=== PATIENT | female | born 1935 | race Caucasian/White ===

== ENCOUNTER 2018-02-17 11:10 | Inpatient (IN) | payer OTHER ==
[~2018-02-17] VITALS: Ht 154.9 cm; Wt 40.4 kg
[2018-02-17] VITALS (7 sets, daily range): BP systolic 84–106; BP diastolic 54–78
[~2018-02-17 11:10] MED LIST: BACITRACIN 500U30 G1 TOP; COLACE100 MG PO; ELIQUIS2.5 MG PO; FISH OIL 1,001000 M2 PO; FOLIC ACID1 MG PO; HYDROCHLOROTH12.5 M1 PO; HYDROCODON-ACE1 EAC7 PO; KEFLEX500 MG PO; LISINOPRIL2.5 MG PO; OMEGA-31000 M1 PO; PRAVACHOL20 MG PO; SORINE 80 MG TA80 M1 PO; TOPROL XL25 MG PO; VITAMIN B-1100 M1 PO; VITAMIN B-12500 MCG PO; VITAMIN D32000 UNI1 PO
--- NOTE | 2018-02-17 12:18 | NUR ---
CARDIZEM BOLUS NOT YET GIVEN UNTIL DOSE CAN BE VERIFIED WITH DR. SPIVEY D/T SBP IN THE 90S.
[2018-02-17 12:20] LABS: ABSOLUTE BASOPHILS 0.1 thou/uL (0.0-0.2); ABSOLUTE EOSINOPHILS 0.2 thou/uL (0.0-0.7); ABSOLUTE LYMPHOCYTES 0.8 thou/uL (0.8-5.3); ABSOLUTE MONOCYTES 0.9 thou/uL (0.0-1.2); ABSOLUTE NEUTROPHILS 4.6 thou/uL (1.6-8.1); EOSINOPHILS 2.8 %; HEMATOCRIT 39.3 % (37.0-47.0); HEMOGLOBIN 13.1 gm/dL (12.0-15.0); LYMPHOCYTES 12.4 %; MCH 28.7 pg (26.0-34.0); MCHC 33.4 g/dL (28.0-37.0); MCV 85.9 fL (80.0-100.0); MPV 7.6 fl. (7.2-11.1); NUCLEATED RBCS 0 /100WBC; PLATELET COUNT* 250 thou/uL (150-400); POLYS 69.8 %; RBC 4.57 mil/uL (4.20-5.00); RDW-CV 15.9 % (10.5-14.5); WBC 6.6 thou/uL (4.0-11.0)
[2018-02-17 12:24] LABS: ANION GAP 8 mmol/L (7-16); BUN 25 mg/dL (7-18); CALCIUM 9.6 mg/dL (8.5-10.1); CHLORIDE 98 mmol/L (98-107); CO2 28 mmol/L (21-32); CREATININE 0.8 mg/dL (0.6-1.3); GLUCOSE 114 mg/dL (70-99); POTASSIUM 3.7 mmol/L (3.5-5.1); SODIUM 134 mmol/L (136-145)
[2018-02-17 12:31] LABS: ALBUMIN 3.3 g/dL (3.4-5.0); ALKALINE PHOSPHATASE 86 U/L (46-116); SGOT 34 U/L (15-37); SGPT 22 U/L (30-65); TOTAL PROTEIN 7.3 g/dL (6.4-8.2); TROPONIN-I LEVEL <0.06 ng/mL (<0.06)
--- NOTE | 2018-02-17 12:54 | NUR ---
REVIEWED DOCUMENTATION OF NSG STUDENT Esa ARVIZU & TONI W/ SAME.
[2018-02-17 13:02] LABS: BE -1.4 mmol/L (-2 to +3); HCO3 22.8 mmol/L (22.0-26.0); PCO2 36.8 mmHg (35.0-45.0); PO2 79.6 mmHg (75.0-100.0)
--- NOTE | 2018-02-17 13:31 | NUR ---
ASSUMED PT CARE.
--- NOTE | 2018-02-17 16:40 | 2DMMODE ---
[place] [address] 2 D/M-MODE ECHOCARDIOGRAM Name: ARACELI BRAND Room: [address] IN [facility]#: [id number] Admission: 02/17/18 Attend Phys: Ivonne Jackson, Discharge: Date of : 33 Date of Service: 02/17/18 1639 Report #: [id number] THIS REPORT FOR: //name// APPROVED REPORT Study performed: 02/17/2018 16:04:36 EXAM: Comprehensive 2D, Doppler, and color-flow Echocardiogram Patient Location: In-Patient Room #: 201 Status: routine BSA: 1.34 HR: 112 bpm BP: 93/54 mmHg Rhythm: Atrial Fibrillation Other Information Study Quality: Good Indications Atrial Fibrillation Pneumonia 2D Dimensions LVEF(%): 56.79 (>50%) IVSd: 7.72 (7-11mm) LVOT Diam: 17.61 (18-24mm) LVDd: 30.28 mm PWd: 6.68 (7-11mm) Ascending Ao: 26.60 (22-36mm) LVDs: 21.60 (25-40mm) Aortic Root: 29.44 mm Forbes's LVEF: 56.79 % Volumes Left Atrial Volume (Systole) LA ESV Index: 28.50 mL/m2 Aortic Valve AoV Peak Gavin.: 0.78 m/s AO Peak Gr.: 2.45 mmHg LVOT Max P.52 mmHg AO Mean Gr.: 1.44 mmHg LVOT Mean P.79 mmHg LVOT Max V: 0.62 m/s AO V2 VTI: 12.19 cm LVOT Mean V: 0.41 m/s ILA (VTI): 1.90 cm2 LVOT V1 VTI: 9.49 [place] [address] 2 D/M-MODE ECHOCARDIOGRAM Name: ARACELI BRAND Room: [address] IN .R.#: [id number] Admission: 02/17/18 Attend Phys: Ivonne Jackson, Discharge: Date of : 33 Date of Service: 02/17/18 1639 Report #: [id number] MV Decel. Time: 97.85 ms MV PHT: 28.38 ms MVA (PHT): 7.75 cm2 TDI Medial E' Gavin.: 0.10 m/s Lateral E' Gavin.: 0.10 m/s Pulmonary Valve PV Peak Gavin.: 0.62 m/s PV Peak Gr.: 1.55 mmHg Tricuspid Valve RAP Estimate: 10.00 mmHg TR Peak Gr.: 39.67 mmHg RVSP: 49.67 mmHg PA Pressure: 49.67 mmHg Left Ventricle The left ventricle is normal size. There is left ventricular dyssynergy consistent with underlying bundle branch block. There is normal left ventricular wall thickness. Left ventricular systolic function is normal. LVEF is 65-70%. This study is not technically sufficient to allow evaluation of the LV diastolic function due to atrial fibrillation. Right Ventricle Right ventricle is mildly dilated. The right ventricular systolic function is normal. Pacemaker lead is present in the right ventricle. Atria Left atrium is mildly dilated. Right atrium is moderately dilated. Aortic Valve Mild aortic valve sclerosis. No aortic regurgitation is present. There is no aortic valvular stenosis. Mitral Valve The mitral valve is normal in structure. Mild mitral regurgitation. No evidence of mitral valve stenosis. Tricuspid Valve The tricuspid valve is normal in structure. Mild tricuspid regurgitation. The RVSP is 50-55 mmHg. Pulmonic Valve The pulmonary valve is normal in structure[place] [address] 2 D/M-MODE ECHOCARDIOGRAM Name: ARACELI BRAND Room: [address] IN [facility]#: [id number] Admission: 02/17/18 Attend Phys: Ivonne Jackson, Discharge: Date of : 33 Date of Service: 02/17/18 1639 Report #: [id number] regurgitation. Great Vessels The aortic root is normal in size. IVC is dilated. Pericardium There is no pericardial effusion. <Conclusion> The left ventricle is normal size. There is normal left ventricular wall thickness. Left ventricular systolic function is normal. LVEF is 65-70%. There is left ventricular dyssynergy consistent with underlying bundle branch block. Right ventricle is mildly dilated. Left atrium is mildly dilated. Right atrium is moderately dilated. Mild aortic valve sclerosis. Mild mitral regurgitation. Mild tricuspid regurgitation. The RVSP is 50-55 mmHg. Mild pulmonic regurgitation. IVC is dilated. <ELECTRONICALLY SIGNED> By: Brayan Chavarria MD, FACC 02/17/18 1639 [id number] Brayan Chavarria MD, FACC /INF
--- NOTE | 2018-02-17 17:02 | NUR ---
ASSUMED CARE OF PATIENT AT 1406 AFTER TRANSFER TO ROOM 201 FROM EMERGENCY DEPARTMENT. PATIENT AWAKE, ALERT, AND ORIENTED, HARD OF HEARING. ADMISSIONS ASSESSMENT AND DOCUMENTATION COMPLETED AND CHARTED. VITAL SIGNS STABLE. OXYGEN SATURATION WITHIN NORMAL LIMITS ON 4 LPM PER NASAL CANULA. PATIENT TRANSFERS AND AMBULATES WITH ASSISTANCE FROM STAFF. FALL CONTRACT SIGNED. USES CALL LIGHT APPROPRIATELY. DENIES NEEDS AT THIS TIME. CALL LIGHT WITHIN REACH. NURSING WILL CONTINUE TO MONITOR.
--- NOTE | 2018-02-17 17:22 | EKG ---
[place] [address] ELECTROCARDIOGRAM REPORT Name: ARACELI BRAND Room: [address] ADM IN .R.#: [id number] Admission: 02/17/18 Attend Phys: Ivonne Jackson MD Discharge: Date of : 33 Report #: [id number] THIS REPORT FOR: //name// [place] [facility] Test Date: 2018-02-17 Test Time: 11:17:47 Pat Name: ARACELI BRAND Department: Room: [facility] Gender: F Captain Waiter: Karlie CUELLO : 1935 Requested By: Kira Sanabria Order Number: [id number] MD: Brayan Chavarria Measurements Intervals [place] Rate: 126 P: 0 CO: 172 QRS: -82 QRSD: 126 T: 98 QT: 400 QTc: 580 Interpretive Statements Ventricular-paced complexes Consider pacemaker mediated tachycardia No further analysis attempted due to paced rhythm Compared to ECG 02/28/2016 08:08:02 Atrial-paced complex(es) or rhythm no longer present T-wave abnormality no longer present Possible ischemia no longer present Electronically Signed On 02-17-2018 17:22:06 CDT by Brayan Chavarria [email or web address] <ELECTRONICALLY SIGNED> By: Brayan Chavarria MD, FACC 02/17/18 1722 1117 [id number] Brayan Chavarria MD, FACC /EPI
[2018-02-18] VITALS (7 sets, daily range): BP systolic 82–110; BP diastolic 37–53
--- NOTE | 2018-02-18 03:18 | NUR ---
ASSUMED CARE OF PT AT 1900. PT IS ALERT AND ORIENTED. VSS. PERRLA. NO COMPLAINTS OF PAIN. PT WAS IN A FIB ON THE TELEMETRY AT THE BEGINNING OF THE SHIFT. PT IS ON 2.5 MG/HR OF CARDIZEM. AT ABOUT 2240, PT CONVERTED TO SINUS RYTHM. PT IS SLEEPING QUIETLY IN BED. REPIRATIONS ARE EVEN AND NONLABORED. WILL CONTINUE TO MONITOR PT.
[2018-02-18 04:57] LABS: HEMATOCRIT 38.2 % (37.0-47.0); HEMOGLOBIN 12.9 gm/dL (12.0-15.0); MCH 29.2 pg (26.0-34.0); MCHC 33.7 g/dL (28.0-37.0); MCV 86.5 fL (80.0-100.0); MPV 7.5 fl. (7.2-11.1); RBC 4.42 mil/uL (4.20-5.00); RDW-CV 15.7 % (10.5-14.5); WBC 4.5 thou/uL (4.0-11.0)
[2018-02-18 05:15] LABS: MAGNESIUM 1.9 mg/dL (1.8-2.4); POTASSIUM 3.7 mmol/L (3.5-5.1)
--- NOTE | 2018-02-18 11:19 | EKG ---
[place] [address] ELECTROCARDIOGRAM REPORT Name: ARACELI BRAND Room: [address] ADM IN M.R.#: [id number] Admission: 02/17/18 Attend Phys: Ivonne Jackson MD Discharge: Date of : 33 Report #: [id number] THIS REPORT FOR: //name// [facility] Test Date: 2018-02-18 Test Time: 09:34:07 Pat Name: ARACELI BRAND Department: Room: [address] Gender: F Spiral Runner: JANE : 1935 Requested By: Ivonne Jackson Order Number: [id number] Reading MD: Virgilio Sanchez Measurements Intervals [place] Rate: 71 P: [place]: 211 QRS: 63 QRSD: 92 T: 248 QT: 488 QTc: 531 Interpretive Statements Atrial-paced complexes Borderline low voltage, extremity leads Abnormal R-wave progression, early transition Abnormal T, consider ischemia, diffuse leads Prolonged QT interval Baseline wander in lead(s) V6 Compared to ECG 02/17/2018 11:17:47 T-wave abnormality now present Possible ischemia now present Prolonged QT interval now present Ventricular-paced complex(es) not seen Electronically Signed On 02-18-2018 11:19:25 CDT by Virgilio Sanchez [email or web address] <ELECTRONICALLY SIGNED> By: Virgilio Sanchez MD, [facility] 02/18/18 1119 0934 Virgilio Sanchez MD, [facility] /EPI
--- NOTE | 2018-02-18 13:04 | NUR ---
Nutrition: Pt assessed for low BMI. Usual wt: 85-95# x several yrs. Pt usually has a good appetite. No recent wt changes. She refuses oral supplements. H/o DJD, falls, CAD, HI, bonifacio, pacemaker. RX: HCTZ, statin, fish oil, solumedrol, D3, B12, B1, vanc. Admitted with PNA. 2gm Na diet. Underweight R/T body frame AEB pt hx, BMI 17. Mild nutrition risk. Oral supplements available if pt desires.
--- NOTE | 2018-02-18 18:27 | NUR ---
ASSUMED CARE OF PATIENT AFTER REPORT THIS MORNING. PATIENT AWAKE, ALERT, AND ORIENTED APPROPRIATELY. PHYSICAL ASSESSMENT COMPLETED AND CHARTED. NO COMPLAINTS OF PAIN THIS SHIFT. HYPOTENSIVE BLOOD PRESSURE, CARDIZEM DRIP STOPPED AND NS BOLUS GIVEN THIS AFTERNOON. BLOOD PRESSURE RETURNED TO BE WITHIN NORMAL LIMITS. GIVEN SCHEDULED MEDICATIONS, SEE EMAR FOR DOCUMENTATION. OXYGEN SATURATION WITHIN NORMAL LIMITS ON ROOM AIR. PATIENT TRANSFERS AND AMBULATES WITH ASSISTANCE FROM STAFF. USES CALL LIGHT APPROPRIATELY. DENIES NEEDS AT THIS TIME. CALL LIGHT WITHIN REACH. NURSING WILL CONTINUE TO MONITOR.
--- NOTE | 2018-02-18 22:00 | NUR ---
ASSUMED CARE OF PT AT 1900. PT IS ALERT AND ORIENTED. VSS. PERRLA. NO COMPLAINTS OF PAIN. STEADY GAIT. PT IS IN SINUS RYTHM WITH A PROLONGED MT INTERVAL. PT IS SLEEPING QUIETLY IN BED. RESPIRATIONS ARE EVEN AND NONLABORED. WILL CONTINUE TO MONITOR PT.
[2018-02-19] VITALS (7 sets, daily range): BP systolic 102–129; BP diastolic 57–72
[2018-02-19 04:31] LABS: HEMATOCRIT 36.3 % (37.0-47.0); MCH 28.4 pg (26.0-34.0); MCHC 33.1 g/dL (28.0-37.0); MCV 85.8 fL (80.0-100.0); MPV 7.3 fl. (7.2-11.1); NUCLEATED RBCS 0 /100WBC; PLATELET COUNT* 235 thou/uL (150-400); RBC 4.23 mil/uL (4.20-5.00); RDW-CV 15.9 % (10.5-14.5); WBC 8.6 thou/uL (4.0-11.0)
[2018-02-19 06:02] LABS: ABSOLUTE LYMPHOCYTES 0.3 thou/uL (0.8-5.3); ABSOLUTE MONOCYTES 0.3 thou/uL (0.0-1.2); ABSOLUTE NEUTROPHILS 7.9 thou/uL (1.6-8.1); ANISOCYTOSIS 1+; PLATELET ESTIMATE ADEQUATE; POIKILOCYTOSIS 1+
--- NOTE | 2018-02-19 07:25 | NUR ---
CHANGE OF SHIFT, BEDSIDE REPORT GIVEN PATIENT SEEN AT BEDSIDE, IN BED ASLEEP ASSUMED PATIENT CARE
--- NOTE | 2018-02-19 09:30 | NUR ---
ORDER RECEIVED FOR "OT EVALUATION AND TREATMENT". ENTERED PATIENT'S ROOM AND SPOUSE SEATED AT BEDSIDE. OT PROVIDING EDUCATION IN ROLE OF O.T. PATIENT VERY ADAMANT THAT SHE DOES NOT NEED OCCUPATIONAL THERAPY. WILL DEFER TO PHYSICAL THEAPY AT THIS TIME.
--- NOTE | 2018-02-19 09:48 | NUR ---
Pt is A&O. Resides at home with her . Independent with ADLs, continues to cook, clean and drive. Pt uses a walker when out in the community. No home o2. Hx of HH after a skilled stay last year, Pt was skilled at [facility]. Pt's goal is to return home at [place]. Following.
--- NOTE | 2018-02-19 11:16 | NUR ---
Faxed neb and med orders to Cathy at [facility], anticipate dc tomorrow.
--- NOTE | 2018-02-19 19:41 | NUR ---
patient remains a and o x 4 [place] sr, pacemaker lungs cta/dim bases o2 2l nc o2 sats mid to upper 90s attempt to titrate to ra with pt o2 sat down to mid 80s and o2 replaced at 2 l nc reinforcing rod layer cough good appetite last bm t-2 good uo up with sba, uses of walker to bathroom skin with bruises no c/o pain ivs x 2 l fa and r ac sl call light in reach and instruction given and followed
[2018-02-20 02:03] LABS: URINE BILIRUBIN NEGATIVE (Negative); URINE BLOOD NEGATIVE (Negative); URINE CLARITY CLEAR; URINE COLOR YELLOW; URINE GLUCOSE-RANDOM NEGATIVE (Negative); URINE KETONES TRACE (Negative); URINE LEUKOCYTES-REFLEX NEGATIVE (Negative); URINE NITRITE-REFLEX NEGATIVE (Negative); URINE PROTEIN NEGATIVE (Negative); URINE SPECIFIC GRAVITY 1.025 (1.005-1.030); URINE UROBILINOGEN 0.2 E.U./dl (0.2-1.0)
[2018-02-20 04:00] VITALS: BP 113/63
--- NOTE | 2018-02-20 06:47 | NUR ---
PATIENT PROGRESSING TOWARDS GOALS: PATIENT REMAINS ON 2L O2 NC WITH SATS >92%. PATIENT DENIES PAIN, DISCOMFORT, AND SHORTNESS OF BREATH THROUGHOUT THE SHIFT. VSS. PATIENT UP WITH SBA AND WALKER TO BATHROOM WITH NO COMPLICATIONS. RESTAURANT TEAM MEMBER TRACING SR 1AVB. HOURLY ROUNDING OBSERVED. CALL LIGHT WITHIN REACH
--- NOTE | 2018-02-20 07:20 | NUR ---
CHANGE OF SHIFT, BEDSIDE REPORT GIVEN PATIENT SEEN AT BEDSIDE, IN BED ASLEEP ASSUMED PATIENT CARE
[2018-02-20 08:00] VITALS: BP 118/64
[2018-02-20 11:45] VITALS: BP 112/62
[2018-02-20] MEDS ORDERED: SINGULAIR 10 MG10 M1 PO (13:54)
[2018-02-20] MEDS ORDERED: ALBUTEROL2.5 MG/31 INH (13:54)
[2018-02-20] MEDS ORDERED: AUGMENTIN 875-1 EACH PO (13:54)
[2018-02-20] MEDS ORDERED: PREDNISONE 10 M10 MG PO (13:54)
[2018-02-20 14:10] VITALS: BP 112/62
[2018-02-20 14:22] VITALS: BP 112/62
--- NOTE | 2018-02-20 14:23 | NUR ---
Pt discharging to home today. Neb delivered yesterday. o2 to be set up through [facility], tank to be delivered to the room. Faxed referral to Cathy at [facility].
--- NOTE | 2018-02-20 17:00 | NUR ---
PATIENT DISCHARGED TO HOME ALL DC INSTRUCTIONS GIVEN, ACKNOWLEDGED, AND SIGNED COPIES GIVEN IV AND HEART MONITOR REMOVED PERSONAL BELONGINGS RETURNED OXYGEN DELIVERED PATIENT ASSISTED OUT VIA WC GOOD CONDITION TO WAITING CAR
== END 2018-02-20 17:00 | disposition home or self-care (01) | DRG 177 ==
LOC: M.ERS 11:10 → M.2W 13:14 → M.TBA-ER 13:14 → M.2W 14:31
PROVIDERS: Personal Emergency Response Attendant; ADMIT Internal Medicine
DX: J15.6 Pneumonia due to other Gram-negative bacteria (principal); J96.01 Acute respiratory failure with hypoxia; E87.1 Hypo-osmolality and hyponatremia; I42.9 Cardiomyopathy, unspecified; I48.92 Unspecified atrial flutter; J42 Unspecified chronic bronchitis; I25.2 Old myocardial infarction; I25.10 Atherosclerotic heart disease of native coronary artery without angina pectoris; I95.9 Hypotension, unspecified; I48.2 Chronic atrial fibrillation; I34.0 Nonrheumatic mitral (valve) insufficiency; I10 Essential (primary) hypertension; E78.5 Hyperlipidemia, unspecified; Z96.642 Presence of left artificial hip joint; Z90.49 Acquired absence of other specified parts of digestive tract; Z79.01 Long term (current) use of anticoagulants; Z95.0 Presence of cardiac pacemaker; Z90.710 Acquired absence of both cervix and uterus; Z87.891 Personal history of nicotine dependence; Z79.2 Long term (current) use of antibiotics; Z79.899 Other long term (current) drug therapy

== ENCOUNTER → 2018-03-03 | Outpatient (CLI) | payer OTHER ==
[~2018-03-03] MED LIST changes: +ALBUTEROL2.5 MG/31 INH; +AUGMENTIN 875-1 EACH PO; +PREDNISONE 10 M10 MG PO; +SINGULAIR 10 MG10 M1 PO
== END ==
LOC: M.CT 10:36
DX: I25.10 Atherosclerotic heart disease of native coronary artery without angina pectoris (principal); K76.9 Liver disease, unspecified; J18.9 Pneumonia, unspecified organism; R59.0 Localized enlarged lymph nodes; I48.91 Unspecified atrial fibrillation; Z95.0 Presence of cardiac pacemaker